=== PATIENT | male | born 2000 | race Caucasian/White ===

== ENCOUNTER 2023-11-08 23:24 | Emergency (ER) | payer MEDICAID, SELFPAY ==
--- NOTE | 2023-11-08 23:25 | XRR_ITS ---
PROCEDURE INFORMATION: Exam: XR Right Hand Exam date and time: 11/08/2023 11:38 PM Age: 23 years old Clinical indication: Injury or trauma; Fall; Blunt trauma (contusions or hematomas); Hand; Right TECHNIQUE: Imaging protocol: Radiologic exam of the right hand. Views: 3 or more views. COMPARISON: No relevant prior studies available. FINDINGS: Bones/joints: There is a boxer's fracture involving the neck of the 5th metacarpal bone with mild dorsal apex angulation. Soft tissues: Normal. XR/XR hand RT min 3V* [id number] IMPRESSION: Boxer's fracture of the neck 5th metacarpal bone.
[2023-11-08 23:30] VITALS: BP 134/82; PULSE 65; RESP 17; TEMP 37.4; O2SAT 99; BMI 23.5
--- NOTE | 2023-11-08 23:31 | W.ED.EXTPRO ---
HPI - Extremity Problem General: Chief complaint: Extremity Injury, Upper Stated complaint: right hand injury Time Seen by Provider: 11/08/23 23:26 Source: patient Mode of arrival: ambulatory Limitations: no limitations History of Present Illness: 23-year-old male states Hailee Jordan been working on his car is changing brakes and slipped and hit the ground. He states that he mentioned punched the ground with his right hand he has pain over the right fifth metacarpal. States pain is currently a 5 out of 10 denies any wrist pain denies any other injuries Associated symptoms: Deny chest pain, fever(s) or rash Related Data Previous Rx's Medication Instructions Recorded ibuprofen 600 mg tablet 600 mg PO Q8H PRN pain #60 tabs 12/18/22 methocarbamol 750 mg tablet 750 mg PO TID PRN muscle spasm #30 12/18/22 tabs prednisone 20 mg tablet 60 mg (3 x 20 mg) PO DAILY 5 days 12/18/22 #15 tabs hydrocodone 5 mg-acetaminophen 325 1 tab PO Q6H PRN pain #14 tabs 11/08/23 mg tablet Allergies Allergy/AdvReac Type Severity Reaction Status Date / Time No Known Allergies Allergy Verified 11/08/23 23:38 Review of Systems Const: Denies: fever(s), chills, body aches or change in appetite ENMT: Denies: throat pain or dental pain Card: Denies: chest pain Resp: Denies: dyspnea GI: Denies: abdominal pain, nausea or vomiting Musc: Reports: extremity pain; Denies: neck pain or back pain Skin/Breast: Denies: rash Physical Exam Const: COMMON NORMALS: no acute distress, patient oriented x3 and healthy appearing HENMT: COMMON NORMALS: normocephalic and atraumatic HEAD & SCALP: normocephalic and atraumatic Neck/C-Spine: COMMON NORMALS: full ROM and supple Chest: COMMONS NORMALS: normal inspection of the chest Resp: COMMON NORMALS: normal respiratory effort Cardio: COMMON NORMALS: regular rate, regular rhythm and No murmurs present (Cardio) RATE: regular rate RHYTHM: regular rhythm Extremity: COMMON NORMALS: normal to inspection NARRATIVE EXTREMITY EXAM: Some tenderness noted over fifth right metacarpal no obvious deformity Neuro: COMMON NORMALS: patient oriented x3, moves all extremities and no focal motor deficits Psych: COMMON NORMALS: mental status grossly normal, Normal thought process present and cooperative THOUGHT PROCESS: Normal thought process present Skin: COMMON NORMALS: no rashes or lesions noted and no wounds GENERAL SKIN EXAM: no rashes or lesions noted Course Vital Signs: Vital signs: Vital Signs Temperature 99.3 F 11/08/23 23:30 Pulse Rate 65 11/08/23 23:30 Respiratory Rate 17 11/08/23 23:30 Blood Pressure 134/82 11/08/23 23:30 Pulse Oximetry 99 11/08/23 23:30 Oxygen Delivery Me thod Room Air 11/08/23 23:30 MDM - Extremity (Nontraumatic) Medical Decision Making Patient presents with left metacarpal fracture of his right hand did place patient in ulnar gutter splint follow-up with ortho return if worsening Medical Records I reviewed the patient's medical records. XR interpretation done by ED provider, pending radiology final review ED provider radiology interpretation(s): xr right hand: 5th metacarpal fx Discharge Plan Discharge Patient Disposition: Home Clinical Impression: Fracture of hand Qualifiers: Encounter type: initial encounter Fracture type: closed Laterality: right Qualified Code(s): S62.91XA - Unspecified fracture of right wrist and hand, initial encounter for closed fracture Condition: Stable Prescriptions: New hydrocodone-acetaminophen 5-325 mg tablet 1 tab PO Q6H PRN (Reason: pain) Qty: 14 0RF No Action methocarbamol 750 mg tablet 750 mg PO TID PRN (Reason: muscle spasm) Qty: 30 0RF prednisone 20 mg tablet 60 mg PO DAILY 5 Days Qty: 15 0RF ibuprofen 600 mg tablet 600 mg PO Q8H PRN (Reason: pain) Qty: 60 0RF Discharge Orders: Discharge ED (Routine); Ordered 11/08/23 Ordered By: Brunilda Hanna Referrals: Yanet Myers MD [Physician] - 1-3 days Rogelio Zhang MD [Primary Care Provider] - Discharge Diet: Advance as tolerated Discharge Activity: Resume usual activity Patient Instructions: Hand Fracture (ED), Opioid Safety Coding Level of Care Code ED [employer] for Pily Moore
[2023-11-08 23:59] VITALS: BP 125/78; PULSE 60; RESP 18; O2SAT 99
[2023-11-09] MEDS: HYDROcodone-acetaminophen 5-325 mg Tablet 1 TAB PO (00:07)
[2023-11-09 00:37] VITALS: BP 125/78; PULSE 60; RESP 18; TEMP 37.4; O2SAT 99
--- NOTE | 2023-11-09 07:12 | DCPLANNER ---
messaged ortho for er f/u
== END 2023-11-09 00:38 | disposition home or self-care (01) ==
PROVIDERS: Emergency Provider Emergency Medicine; Family Provider Family Medicine; PCP Family Medicine
DX: S62.336A Displaced fracture of neck of fifth metacarpal bone, right hand, initial encounter for closed fracture (principal); W01.0XXA Fall on same level from slipping, tripping and stumbling without subsequent striking against object, initial encounter
CPT/HCPCS: 73130; 99283

== ENCOUNTER → 2023-11-10 09:19 | Outpatient (BNVA) | payer MEDICAID, SELFPAY | PROVIDERS: Family Provider Family Medicine; PCP Family Medicine; Visit Provider Nurse Practitioner | DX: S62.366A Nondisplaced fracture of neck of fifth metacarpal bone, right hand, initial encounter for closed fracture; W22.8XXA Striking against or struck by other objects, initial encounter | CPT/HCPCS: 73130 ==

== ENCOUNTER 2023-11-10 10:44 | Outpatient (CLI) | payer MEDICAID, SELFPAY | END 2023-11-10 10:45 | disposition home or self-care (01) | LOC: SPT 10:46 | PROVIDERS: Family Provider Family Medicine; PCP Family Medicine; Visit Provider Nurse Practitioner | DX: Z46.89 Encounter for fitting and adjustment of other specified devices (principal); S62.91XS Unspecified fracture of right hand, sequela; X58.XXXS Exposure to other specified factors, sequela | CPT/HCPCS: L3984 ==

== ENCOUNTER → 2023-12-08 09:16 | Outpatient (BNVA) | payer MEDICAID, SELFPAY | PROVIDERS: Family Provider Family Medicine; PCP Family Medicine; Visit Provider Nurse Practitioner | DX: S62.366D Nondisplaced fracture of neck of fifth metacarpal bone, right hand, subsequent encounter for fracture with routine healing (principal); X58.XXXD Exposure to other specified factors, subsequent encounter | CPT/HCPCS: 73130 ==

== ENCOUNTER 2023-12-08 11:16 | Outpatient (CLI) | payer MEDICAID, SELFPAY | END 2023-12-08 11:17 | disposition home or self-care (01) | LOC: SPT 11:18 | PROVIDERS: Family Provider Family Medicine; PCP Family Medicine; Visit Provider Nurse Practitioner | DX: Z46.89 Encounter for fitting and adjustment of other specified devices (principal); S62.366S Nondisplaced fracture of neck of fifth metacarpal bone, right hand, sequela; X58.XXXS Exposure to other specified factors, sequela | CPT/HCPCS: L3807 ==